=== PATIENT | male | born 1955 | race Caucasian/White ===

== ENCOUNTER 2024-06-22 14:06 | Emergency (ER) | payer MEDICARE, OTHER, SELFPAY ==
[2024-06-22] VITALS (23 sets, daily range): BP systolic 112–133; BP diastolic 70–97; PULSE 60–92; TEMP 36.7; O2SAT 84–99; BMI 26.4
--- NOTE | 2024-06-22 14:27 | ECG_ITS ---
The [facility] Test Date: 2024-06-22 Pat Name: RONAN DANIELSON Department: Room: - Gender: Male [employer] Pricer: : 1955 Requested By: Jamie Sommer Order Number: [id number] Reading MD: CANDICE SHAIKH Measurements Intervals [place] Rate: 65 P: 34 [place]: 192 QRS: 38 QRSD: 86 T: 60 QT: 420 QTc: 432 Interpretive Statements 1100 Sinus rhythm 9110 normal ECG No previous ECG available for comparison Electronically Signed On 06-25-2024 6:26:45 EST by CANDICE SHAIKH
--- NOTE | 2024-06-22 14:27 | XR_ITS ---
The [address] [address] Patient Name: RONAN DANIELSON MRN: [id number] date: 1955 Sex: M Assigned Patient Location: ER Current Patient Location: ED.MAIN Accession/Order Number: [id number] Exam Date: 06/22/2024 14:45 Report Date: 06/22/2024 15:07 At the request of: AAMIR RAMIREZ Procedure: XR chest 1V EXAMINATION: XR chest 1V HISTORY: cough, syncope COMPARISON: No relevant comparison available. FINDINGS: LUNGS: No significant pulmonary parenchymal abnormalities. VASCULATURE: No increased pulmonary vasculature. PLEURA: No pneumothorax, effusion, or pleural thickening. CARDIAC: No cardiomegaly or cardiac silhouette abnormality. MEDIASTINUM: No visible mass or adenopathy. BONES: No fracture or visible bone lesion. OTHER: Negative. XR/XR chest 1V IMPRESSION: 1. No acute cardiopulmonary process. Electronically authenticated by: OCTAVIO VALLEJO Date: 06/22/2024 15:07
--- NOTE | 2024-06-22 14:27 | CT_ITS ---
The [address] [address] Patient Name: RONAN DANIELSON MRN: [id number] date: 1955 Sex: M Assigned Patient Location: ER Current Patient Location: ER Accession/Order Number: [id number] Exam Date: 06/22/2024 14:47 Report Date: 06/22/2024 15:14 At the request of: AAMIR RAMIREZ Procedure: CT head/brain wo con EXAMINATION: CT head/brain wo con HISTORY: Syncope COMPARISON: No relevant comparison available. TECHNIQUE: Axial CT images were obtained without IV contrast. Dose reduction techniques were achieved by using automated exposure control and/or adjustment of mA and/or kV according to patient size and/or use of iterative reconstruction technique. FINDINGS: BRAIN: No edema, hemorrhage, mass, acute infarction, or inappropriate atrophy. CSF SPACES: No hydrocephalus, subarachnoid hemorrhage, or mass. Appropriate for age. SKULL: No fracture, mass, or other significant visible lesion. SINUSES: No significant mucosal thickening or fluid on the limited views. ORBITS: No appreciable abnormality on the limited views. OTHER: Negative CT/CT head/brain wo con IMPRESSION: 1. No intracranial hemorrhage or appreciable acute abnormality. 2. Age consistent mild chronic changes. Electronically authenticated by: OCTAVIO VALLEJO Date: 06/22/2024 15:14
--- NOTE | 2024-06-22 14:29 | ED.SYNCOPE1 ---
HPI - Syncope General Chief Complaint: Syncope Stated Complaint: SYNCOPE Time Seen by Provider: 06/22/24 14:15 Source: patient Mode of arrival: ambulance History of Present Illness HPI narrative: 68 year old male presents to the ED for a syncopal episode today. His reports they were sitting on different couches at home today. She asked him to pass the television remote. States his head dropped back and he started to make gurgling sound. He was unresponsive for a few seconds. EMS was called. Pt has had body aches, cough, diarrhea since 06/19/24. Denies emesis, VALENTINO, dizziness, vision changes. Denies CP, SOB, abd pain, urinary sx. Related Data Home Medications ?Medication ?Instructions ?Recorded ?Confirmed atorvastatin 10 mg tablet mg 06/22/24 levothyroxine 100 mcg tablet mcg 06/22/24 Allergies Allergy/AdvReac Type Severity Reaction Status Date / Time No Known Drug Allergies Allergy Verified 06/22/24 14:10 Review of Systems ROS Constitutional Reports: chills and fatigue; Denies: fever Eyes Denies: change in vision or blurry vision Ears, nose, mouth, and throat Reports: nasal congestion; Denies: throat pain, neck pain, throat swelling, ear pain or ear discharge Cardiovascular Denies: chest pain, palpitations or edema Respiratory Reports: cough; Denies: shortness of breath Gastrointestinal Reports: diarrhea; Denies: abdominal pain, nausea or vomiting Genitourinary Denies: painful urination Musculoskeletal Denies: back pain, neck pain or extremity pain Integumentary/Breast Denies: rash Neurological Denies: headache, numbness in extremities, weakness in extremities, dizziness, confusion or slurred speech PFSH PFSH Social History Little interest or pleasure in doing things: not at all Feeling down, depressed, or hopeless: not at all Exam Constitutional Vital Signs, click to edit/add: Last Vital Signs Temp 98.1 F 06/22/24 14:10 Pulse 67 06/22/24 14:10 Resp 18 06/22/24 14:10 BP 112/71 06/22/24 14:10 Pulse Ox 95 06/22/24 14:10 O2 Del Method Room Air 06/22/24 14:10 Common normals: no apparent distress and oriented x3 General appearance: cooperative; not in distress HENMT Common normals: moist oral mucous membranes Nose: external nose normal External ear: external ears normal Mouth: oral and palatal mucosa normal, lip normal and tongue normal Throat: posterior oropharynx normal and uvula midline Eye Common normals: PERRL, EOMs intact bilaterally, conjunctivae normal and no scleral icterus Neck & C-Spine Common normals: supple and no meningeal signs Chest Chest: symmetrical chest wall rise Respiratory Common normals: normal respiratory effort and clear to auscultation bilaterally Effort & inspection: able to speak in complete sentences and symmetric chest movement Cardio Common normals: regular rate and regular rhythm GI Common normals: soft to palpation and non-tender Neuro Common normals: oriented x3, CN's II-XII intact bilaterally, moves all extremities and no focal motor deficits Sensorium/orientation: awake and alert Speech: speech normal Gait (neuro): normal gait Course Vital Signs Vital signs: Vital Signs Temperature 98.1 F 06/22/24 14:10 Pulse Rate 67 06/22/24 14:10 Respiratory Rate 18 06/22/24 14:10 Blood Pressure 112/71 06/22/24 14:10 Pulse Oximetry 95 06/22/24 14:10 Oxygen Delivery Method Room Air 06/22/24 14:10 Temperature 98.1 F 06/22/24 14:10 Pulse Rate 67 06/22/24 14:10 Respiratory Rate 18 06/22/24 14:10 Blood Pressure 112/71 06/22/24 14:10 Pulse Oximetry 95 06/22/24 14:10 Oxygen Delivery Method Room Air 06/22/24 14:10 MDM - Syncope MDM Narrative Medical decision making narrative: BUN was 31, creatinine 1.83. He was given 2L IV fluids. He tested positive for influenza A. Covid-19 was negative. Imaging was negative for acute findings. Findings were discussed. He reported he was feeling much better and was ready to be discharged home. Follow up with pcp for a recheck, further evaluation and treatment. Differential Diagnosis Differential diagnosis: Likely syncope due to orthostatic hypotension, vasovagal syncope and dehydration Medical Records Attestation: I reviewed the patient's medical records. Lab Data Attestation: I reviewed the patient's lab results. Labs: Lab Results 06/22/24 06/22/24 06/22/24 Range/Units 14:15 14:20 15:15 WBC 6.1 (4.0-11.0) 10^3/uL RBC 5.15 (4.70-6.10) 10^6/uL Hgb 14.5 (14.0-18.0) g/dL Hct 42.3 (42.0-54.0) % MCV 82.1 (80.0-94.0) fL MCH 28.2 (25.9-34.0) pg MCHC 34.3 (29.9-35.2) g/dL RDW 12.4 (11.0-15.0) % Plt Count 191 (150-450) 10^3/uL MPV 9.8 (9.5-13.5) fL Neut % (Auto) 57.4 (43.0-75.0) % Lymph % (Auto) 19.7 L (20.5-60.0) % [place] % (Auto) 21.3 H (1.7-12.0) % Eos % (Auto) 0.3 L (0.9-7.0) % Baso % (Auto) 1.0 (0.2-2.0) % Neut # (Auto) 3.5 (1.4-6.5) 10^3/uL Lymph # (Auto) 1.2 (1.2-3.8) 10^3/uL [place] # (Auto) 1.3 H (0.3-0.8) 10^3/uL Eos # (Auto) 0.0 (0.0-0.7) 10^3/uL Baso # (Auto) 0.1 (0.0-0.1) 10^3/uL Abs Immat Gran (auto) 0.02 (0.00-0.03) 10^3/uL Imm/Tot Granulo (auto) 0.3 (0.0-0.5) % Sodium 137 (136-145) mmol/L Potassium 3.5 (3.5-5.1) mmol/L Chloride 99 (98-107) mmol/L Carbon Dioxide 22.0 (21.0-32.0) mmol/L Anion Gap 19.5 BUN 31.0 H (7.0-18.0) mg/dL Creatinine 1.83 H (0.70-1.30) mg/dL Est GFR ( Amer) 45 L (>=60 mL/min/1.73m^2) Est GFR (Non-Af Amer) 37 L (>=60 mL/min/1.73m^2) BUN/Creatinine Ratio 16.9 Glucose 143 H (74-106) mg/dL Calcium 9.0 (8.5-10.1) mg/dL Total Bilirubin 0.5 (0.2-1.0) mg/dL AST 39 H (15-37) U/L ALT 44 (16-63) U/L Alkaline Phosphatase 73 (46-116) U/L Troponin I High Sens 14.1 (4.0-76.1) pg/mL Total Protein 7.6 (6.4-8.2) g/dL Albumin 3.6 (3.4-5.0) g/dL Globulin 4.0 g/dL Albumin/Globulin Ratio 0.9 Urine Color Yellow (YELLOW) Urine Clarity Clear (CLEAR) Urine pH 5.5 (5.0-9.0) Ur Specific [place] >=1.030 A (1.005-1.025) Urine Protein 30 A (NEG/TRACE) mg/dL Urine Glucose (UA) Negative (NEGATIVE) mg/dL Urine Ketones Trace A (NEGATIVE) mg/dL Urine Occult Blood Negative (NEGATIVE) Urine Nitrite Negative (NEGATIVE) Urine Bilirubin Negative (NEGATIVE) Urine Urobilinogen 0.2 (0.2-1.0) EU/dL Ur Leukocyte Esterase Negative (NEGATIVE) Urine RBC 0-2 (0-2) #/HPF Urine WBC 0-2 A (NONE SEEN) #/HPF Ur Squamous Epith Cells Few A (NONE/RARE) #/LPF Urine Crystals None seen (None Seen) #/HPF Urine Bacteria Trace A (NONE SEEN) #/HPF Urine Casts Seen A (NONE SEEN) #/LPF Hyaline Casts Many Urine Mucus Trace A (NONE SEEN) Ur Culture Indicated? No Influenza Type A Ag Positive A Influenza Type B Ag Negative SARS-CoV-2 Ag (CV2AG) Negative (NEGATIVE) Imaging Data Chest x-ray: Attestation: I have reviewed the pertinent imaging results. Radiologist's impression: ITS Impressions Chest X-Ray 06/22/24 14:27 IMPRESSION: 1. No acute cardiopulmonary process. Electronically authenticated by: OCTAVIO VALLEJO Date: 06/22/2024 15:[address] 06/22/24 14:27 IMPRESSION: 1. No intracranial hemorrhage or appreciable acute abnormality. 2. Age consistent mild chronic changes. Electronically authenticated by: OCTAVIO VALLEJO Date: 06/22/2024 15:14 ECG Data Attestation: ?I have reviewed the pertinent ECG results. (EKG was reviewed by the attending physician. It showed sinus rhythm at a rate of 65. No acute ST segment changes. ) Interpretation: Measurements Intervals [place] Rate: 65 P: 34 [place]: 192 QRS: 38 QRSD: 86 T: 60 QT: 420 QTc: 432 Interpretive Statements 1100 Sinus rhythm 9110 normal ECG No previous ECG available for comparison Discharge Plan Discharge Chief Complaint: Syncope Clinical Impression: Influenza A, Syncope, Dehydration Patient Disposition: Home, Self-Care Time of Disposition Decision: 17:15 Condition: Good Mode of Transportation: Private Vehicle Prescriptions / Home Meds: No Action atorvastatin 10 mg tablet levothyroxine 100 mcg tablet Print Language: Turkmen Instructions: Dehydration (DC), Syncope (ED), Influenza (ED) Additional Instructions: Return to the ER if your condition worsens. Referrals: MICHAEL GUADALUPE [Primary Care Provider] - 1 week
[2024-06-22 14:36] LABS: Basophils Absolute Auto 0.1 10^3/uL (0.0-0.1); Eosinophils Percent Auto 0.3 % (0.9-7.0); Hematocrit 42.3 % (42.0-54.0); Hemoglobin 14.5 g/dL (14.0-18.0); Immature Granulocytes Abs Auto 0.02 10^3/uL (0.00-0.03); Immature Granulocytes Pct Auto 0.3 % (0.0-0.5); Lymphocytes Absolute Auto 1.2 10^3/uL (1.2-3.8); Lymphocytes Percent Auto 19.7 % (20.5-60.0); Mean Corpuscular HGB Conc 34.3 g/dL (29.9-35.2); Mean Corpuscular Hemoglobin 28.2 pg (25.9-34.0); Mean Corpuscular Volume 82.1 fL (80.0-94.0); Mean Platelet Volume 9.8 fL (9.5-13.5); Monocytes Absolute Auto 1.3 10^3/uL (0.3-0.8); Monocytes Percent Auto 21.3 % (1.7-12.0); Neutrophils Absolute Auto 3.5 10^3/uL (1.4-6.5); Neutrophils Percent Auto 57.4 % (43.0-75.0); Platelet Count 191 10^3/uL (150-450); Red Blood Count 5.15 10^6/uL (4.70-6.10); Red Cell Distribution Width 12.4 % (11.0-15.0); White Blood Count 6.1 10^3/uL (4.0-11.0)
[2024-06-22 14:52] LABS: Anion Gap 19.5
[2024-06-22 14:53] LABS: Influenza Virus A Antigen Positive; Influenza Virus B Antigen Negative; Internal Control Within Normal Limits; SARS-CoV-2 Ag NEGATIVE (NEGATIVE)
[2024-06-22 14:53] LABS: Alanine Aminotransferase 44 U/L (16-63); Albumin Globulin Ratio 0.9; Albumin Level 3.6 g/dL (3.4-5.0); Alkaline Phosphatase 73 U/L (46-116); Aspartate Amino Transferase 39 U/L (15-37); BUN Creatinine Ratio 16.9; Bilirubin Total 0.5 mg/dL (0.2-1.0); Chloride 99 mmol/L (98-107); Estimated GFR (African America 45 (>=60 mL/min/1.73m^2); Estimated GFR (Non-African Ame 37 (>=60 mL/min/1.73m^2); Glucose 143 mg/dL (74-106); Potassium 3.5 mmol/L (3.5-5.1); Sodium 137 mmol/L (136-145); Total Protein 7.6 g/dL (6.4-8.2); Troponin I High Sensitivity 14.1 pg/mL (4.0-76.1)
[2024-06-22 15:22] LABS: Bilirubin Urine NEGATIVE (NEGATIVE); Blood Urine NEGATIVE (NEGATIVE); Clarity Urine CLEAR (CLEAR); Color Urine YELLOW (YELLOW); Glucose Urine UA NEGATIVE (NEGATIVE); Ketones Urine TRACE mg/dL (NEGATIVE); Leukocyte Esterase Urine NEGATIVE (NEGATIVE); Nitrite Urine NEGATIVE (NEGATIVE); Protein Urine 30 mg/dL (NEG/TRACE); Specific Gravity Urine >=1.030 (1.005-1.025); Urobilinogen Urine 0.2 EU/dL (0.2-1.0); pH Urine 5.5 (5.0-9.0)
[2024-06-22 15:23] LABS: Urine Microscopic Indicated YES
[2024-06-22 15:35] LABS: Cast Seen? SEEN #/LPF (NONE SEEN); Hyaline Casts Urine MANY
[2024-06-22 15:37] LABS: Bacteria Urine TRACE #/HPF (NONE SEEN); Mucus Urine TRACE (NONE SEEN); RBC Urine 0-2 #/HPF (0-2); WBC Urine 0-2 #/HPF (NONE SEEN)
[2024-06-22 15:39] LABS: Crystals Seen? None Seen #/HPF (None Seen); Squamous Epithelial Cell Urine FEW #/LPF (NONE/RARE); Urine Culture Indicated NO
[2024-06-22] MEDS: 0.9 % SODIUM CHLORIDE 1,000 ML 1000 ML IV (16:22)
== END 2024-06-22 17:30 | disposition home or self-care (01) ==
PROVIDERS: Nurse Practitioner Family; Emergency Provider Emergency Medicine; PCP Family Medicine
DX: E86.0 Dehydration (principal); R55 Syncope and collapse; J10.1 Influenza due to other identified influenza virus with other respiratory manifestations
CPT/HCPCS: 36415; 70450; 71045; 80053; 81001; 84484; 85025; 87804; 87811; 93005; 96360; 99285